=== PATIENT | female | born 1970 | race Caucasian/White ===

== ENCOUNTER 2024-03-07 10:00 | Emergency (ER) | payer OTHER, SELFPAY ==
[2024-03-07 10:06] VITALS: BP 160/97
--- NOTE | 2024-03-07 10:52 | ED.GENMED ---
History of Present Illness
General
Chief Complaint: Allergic Reaction
Source: patient
Time Seen by Provider: 03/07/24 10:28
Travel History
Have you had any contact with someone who has COVID-19?: No
Do you have any symptoms of coronavirus? Fever > 100 degrees, chills, cough, shortness of breath, sore throat, loss of taste or smell, muscle aches, or headache?: No
History of Present Illness
History of Present Illness:
53-year-old female with past medical history of hypertension presenting to the emergency department for evaluation of groin/genital itching and erythema. Patient states that she attempted topical Vagisil a week ago and states she did have initial
relief with this for about 5 days but then over the last 2 days she states the itching has gotten much more intense and she has had vaginal discharge with this as well patient is not sexually active and has no concern for sexually transmitted
infection. She denies any fevers or other infectious symptoms. She notes a history of similar about 10 years ago where she was trialed on nystatin but had an allergic reaction to this and believes she got better with clotrimazole
Past History
Past History
ED Past Medical History: GERD, HTN, Psychiatric (Anxiety ) and Other (History of arthritis, and hemorrhoids); Negative Hypercholesterolemia or IDDM
ED Past Surgical History: Gynecological (D&E., and ) and Other ([place] teeth extraction); Negative Cardiac
Social History
Tobacco: Non-smoker
Alcohol: Occasional
Drug: None
Personal:
Living: with family
Employment: Employed
Family History
Family History: Hypertension; Negative Early CAD
Review of Systems
Review of Systems
All Other Systems: ROS reviewed and negative except as documented in HPI and ROS
Phy Exam
Physical Exam
Physical Exam:
GENERAL: Alert , in no apparent distress
EYE: conjunctiva clear
Head: Normocephalic atraumatic
NECK: Supple,
ENT: mmm.
LUNGS: no acute respiratory distress
Genitourinary: Exam chaperoned by ED RONI Truong: Moderate amount of external genital erythema that extends into the inguinal region, well-demarcated, nonblanching, pruritic. There is a moderate amount of white clumpy discharge within the vagina. No
cervical motion or adnexal tenderness
NEUROLOGICAL: Alert and oriented
SKIN: Warm and dry, skin intact.
MUSCULOSKELETAL: well perfused.
PSYCH: Normal and appropriate interaction.
Scores
Heart Failure Risk
Heart Failure Risk Score: Not Applicable
Heart Score for Chest Pain Patients
STEMI patient?: Not applicable
Withdrawal Assessment of Alcohol
Withdrawal Assessment Completed?: Not applicable
Course
Orders/Labs/Results
Orders:
Orders
03/07/24 10:52
Basic Metabolic Panel Urgent
Complete Blood Count/With Diff Urgent
Urinalysis Reflex To Culture Urgent
Date Specimen was Collected: 03/07/24
Time Specimen was Collected: 10:50
Urine Microscopic Reflex Cult Urgent
Urine Culture Urgent
ELISABETH Source: U
Specimen Description:
Date Specimen was Collected: 03/07/24
Time Specimen was Collected: 10:50
Abnormal Lab Results
03/07/24
10:52
RBC 4.16 L 10^6/uL
(4.20-5.40)
Hct 35.8 L %
(37.0-47.0)
Absolute Lymphs (auto) 1.1 L 10^3/uL
(1.2-3.4)
Lymphocytes % 15.0 L %
(20.5-51.1)
Chloride 109 H mmol/L
(98-107)
Glucose 109 H mg/dl
(70-99)
Urine Ketones Trace A
(Negative)
Ur Occult Blood Reflex 4+ A
(Negative)
Leukocyte Esterase Rfl 2+ A
(Negative)
Urine RBC 26-30 A /HPF
(0-2)
Urine WBC (Reflex) 16-20 A /HPF
(0-5)
Urine Bacteria (Reflex) Moderate A
(Negative)
03/07/24 10:52
03/07/24 10:52
Vital Signs
Initial and Last Documented VS:
Initial Vital Signs
Temp Pulse Resp BP Pulse Ox
98.1 F 67 20 160/97 97
03/07/24 10:06 03/07/24 10:06 03/07/24 10:06 03/07/24 10:06 03/07/24 10:06
Last Documented Vital Signs
Temp Pulse Resp BP Pulse Ox
98.1 F 67 20 160/97 99
03/07/24 10:06 03/07/24 10:06 03/07/24 10:06 03/07/24 10:06 03/07/24 10:20
MDM/Problems Addressed
Differential Diagnosis Includes:
Candidal vulvovaginitis, tinea cruris, medication interaction, no concern for STI
MDM/Problems Addressed:
53-year-old female presenting to the emergency department for evaluation of vaginal and genital itching that has gotten worse despite topical vagisil medication initially used 1 week ago. Patient did notice initial relief but states symptoms have
been much worse over the last 2 days. Overall I am most suspicious for candidal vulvovaginitis. Will treat with Diflucan as well as topical clotrimazole ointment. It is certainly possible this could be an allergic reaction however given the
surrounding area is also erythematous I am much more convinced this to be a candidal infection. Patient currently does not have an MOVIE EXTRA so we will provide her with information for 1 so she can adequately follow-up. Anticipate discharge home.
*Pulse Oximetry
Patient hypoxic: no
*Critical Care Note
Total Time (30-74mins, 75-104mins- exclusive of procedures): Not Applicable
Patient Management
Escalation/DeEscalation of care consider admission/obs:
Patient's labs and urine are overall. Her urine did have 2+ leukocytes and 16-20 WBCs however there are increased squamous cells and bacteria likely signifying contamination. A culture will be done and if positive will recontact the patient and
start an antibiotic but I do suspect this is more likely a contaminant. Prescription for clotrimazole and Diflucan sent to pharmacy. Patient is aware of return precautions.
ED Attending Note
-
Portions of this chart may have been created with voice recognition software.� Occasional wrong word or��sound alike� substitutions may have occurred due to the inherent limitations of voice recognition software.
Discharge Plan
Departure
Patient Disposition: Home (Routine Discharge)
Date of Disposition: 03/07/24
Time of Disposition: 11:18
Patient with high blood pressure during this ER visit?: Yes
Discharge Problem:
Candidal vulvovaginitis
Instructions: Vulvovaginal yeast infection
Prescriptions:
New
fluconazole 150 mg tablet
150 mg PO ONCE Qty: 1 0RF
clotrimazole 1 % ointment
1 applic topical BID 14 Days Qty: 56.7 0RF
No Action
Aviane
1 tab PO DAILY
fluoxetine 40 MG capsule
40 mg PO Q48H
omeprazole [Prilosec] 40 MG capsule,delayed release(DR/EC)
40 mg PO DAILY Qty: 30 0RF
prednisone 20 MG tablet
40 mg PO DAILY Qty: 8 0RF
clotrimazole-betamethasone 45 GM cream
45 gm TP BID Qty: 1 0RF
Rx Instructions:
Please apply to affected ared twice daily x 10 days.
sulfamethoxazole-trimethoprim 1 TABLET tablet
1 tab PO BID Qty: 10 0RF
clotrimazole-betamethasone 45 GM cream
1 g TP BID Qty: 1 0RF
ondansetron 4 MG tablet,disintegrating
4 mg PO TIDPRN PRN (Reason: nausea/vomiting) Qty: 10 0RF
olmesartan [Benicar] 40 MG tablet
40 mg PO HS Qty: 30 0RF
famotidine [Pepcid] 20 mg tablet
20 mg PO HS Qty: 30 0RF
ondansetron 4 mg tablet,disintegrating
4 mg PO TIDPRN PRN (Reason: nausea/vomiting) Qty: 10 0RF
Referrals:
Karina Abbasi DO [Family Provider] -
Sherin Boyer MD [Active] - (OBGYN)
Interventions
Interventions:
*Risk Screen - Suicide Last Done: 03/07/24 10:06
*General Assessment Last Done: 03/07/24 10:06
*Neglect/Abuse Screening Last Done: 03/07/24 10:06
ED- Fall Risk Assessment Last Done: 03/07/24 10:20
*Nursing Disposition Last Done: 03/07/24 11:23
ED- Cardiac Assessment Last Done: 03/07/24 10:20
ED- Pulmonary Assessment Last Done: 03/07/24 10:20
ED-Skin Assessment Last Done: 03/07/24 10:20
Discharge Date and Time
Discharge Date/Time: 03/07/24 11:23
Print Language: CHINESE
[2024-03-07 11:01] LABS: % Basophils 0.8 % (0-2); % Eosinophils 4.5 % (0-6); % Immature Granulocytes 0.4 % (0-0.5); % Neutrophils 72.3 % (42.2-75.2); Absolute Basophils 0.1 10^3/uL (0-0.2); Absolute Eosinophils 0.3 10^3/uL (0-0.7); Absolute Lymphocytes 1.1 10^3/uL (1.2-3.4); Absolute Monocytes 0.5 10^3/uL (0.1-0.6); Absolute Neutrophils 5.2 10^3/uL (1.4-6.5); Hematocrit 35.8 % (37.0-47.0); Hemoglobin 12.8 g/dL (12.0-16.0); Mean Corp Hgb Conc. 35.8 g/dL (33.0-37.0); Mean Corpuscular Hgb 30.8 pg (27.0-31.0); Mean Corpuscular Volume 86.1 fL (81.0-99.0); Nucleated Red Blood Cells % 0 %; Platelet Count 298 10^3/uL (130-400); Red Blood Cell Count 4.16 10^6/uL (4.20-5.40); Red Cell Dist. Width 12.6 % (11.5-14.5); White Blood Cell Count 7.2 10^3/uL (4.8-10.8)
[2024-03-07 11:15] LABS: Blood Urea Nitrogen 13 mg/dl (7-17); Calcium 9.4 mg/dl (8.4-10.2); Carbon Dioxide 23 mmol/L (22-30); Chloride 109 mmol/L (98-107); Glucose 109 mg/dl (70-99); Potassium 3.7 mmol/L (3.5-5.1); Sodium 142 mmol/L (135-145); eGFR > 60.00
[2024-03-07 11:20] LABS: Urine Albumin Trace (Neg - Trace); Urine Bilirubin Negative (Negative); Urine Character Slightly Cloudy (Clear); Urine Glucose Negative (Negative); Urine Ketone Trace (Negative); Urine Leukocyte 2+ (Negative); Urine Nitrite Negative (Negative); Urine Occult Blood 4+ (Negative); Urine Specific Gravity 1.025 (<1.030); Urine Urobilinogen Negative (Neg - 1+)
[2024-03-07 11:21] LABS: Urine Color Yellow
[2024-03-07 11:34] LABS: Urine Squamous Cell >30 /LPF (Few)
[2024-03-07 11:35] LABS: Urine Bacteria Moderate (Negative); Urine Red Blood Cell 26-30 /HPF (0-2); Urine White Cell 16-20 /HPF (0-5)
== END 2024-03-07 11:23 | disposition home or self-care (01) ==
LOC: EMR 10:00
PROVIDERS: Physician Assistant Medical; EMERGENCY PHYSICIAN Emergency Medicine; FAMILY PHYSICIAN Family Medicine
DX: B37.31 Acute candidiasis of vulva and vagina (principal); I10 Essential (primary) hypertension; F41.9 Anxiety disorder, unspecified; K21.9 Gastro-esophageal reflux disease without esophagitis; M19.90 Unspecified osteoarthritis, unspecified site; Z88.6 Allergy status to analgesic agent; Z88.8 Allergy status to other drugs, medicaments and biological substances
CPT/HCPCS: 99283; 80048; 81003; 81015; 85025; 87086

== ENCOUNTER 2024-03-14 12:29 | Emergency (ER) | payer OTHER, SELFPAY ==
[2024-03-14 12:38] VITALS: BP 180/113
--- NOTE | 2024-03-14 14:10 | ED.GENMED ---
History of Present Illness
General
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
Source: patient
Exam Limitations: none
Time Seen by Provider: 03/14/24 12:58
Nursing documentation reviewed up to this point in time: agreed with
Travel History
Have you had any contact with someone who has COVID-19?: No
Do you have any symptoms of coronavirus? Fever > 100 degrees, chills, cough, shortness of breath, sore throat, loss of taste or smell, muscle aches, or headache?: No
History of Present Illness
History of Present Illness:
53-year-old female with past history of HTN presents with worsening of her yeast infection that she was evaluated here for on 03/07. She was given Rx for 150 mg of fluconazole once and clotrimazole 1% ointment to apply twice daily for 14 days. Pt
states rash is spreading, now starting under her arms, extremely itchy, scratching has caused her to become raw lower abdomen by C section scar. Denies fever/chills,
Past History
Past History
ED Past Medical History: GERD, HTN, Psychiatric (Anxiety ) and Other (History of arthritis, and hemorrhoids); Negative Hypercholesterolemia or IDDM
ED Past Surgical History: Gynecological (D&E., and ) and Other ([place] teeth extraction); Negative Cardiac
Social History
Tobacco: Non-smoker
Alcohol: Occasional
Drug: None
Personal:
Living: with family
Employment: Employed
Family History
Family History: Hypertension; Negative Early CAD
Review of Systems
Review of Systems
Allergies reviewed?: Yes
All Other Systems: ROS reviewed and negative except as documented in HPI and ROS
Constitutional: Denies fever or chills
ABD/GI: Denies abdominal pain or nausea
: Denies dysuria, frequency, flank pain, difficulty voiding, urgency or dark urine
Musculoskeletal: Reports no symptoms
Skin: Reports itching and rash
Neurological: Reports no symptoms
Phy Exam
Physical Exam
Physical Exam:
GENERAL: No acute distress. A&Ox3.
CONSTITUTIONAL: Afebrile.
RESPIRATORY: Regular respirations, nonlabored, lungs clear.
CARDIOVASCULAR: Regular rate and rhythm, no murmurs, no rubs.
GI: Soft, obese, nontender, normal BS
MUSCULOSKELETAL: Moves with ease. Well perfused.
SKIN: Warm, dry,. Candidal rash in fold of the pannus down into vaginal area and starting to spread to anal area. It spreads to and including the scar from her . The area is raw from scratching but no significant bleeding. Rash is in
both groin and the tops of both inner thighs. There is a much less intense rash forming under both axilla, right greater than left, not bright red likely candidal rash rather faint macular rash with normal colored underlying skin. All rash areas
are pruritic.
PSYCH: Normal mood and affect. Well kept, interactive and appropriate
NEUROLOGIC: Awake, alert and oriented. No focal neurological deficits
Course
Orders/Labs/Results
Orders:
Orders
03/14/24 14:18
Doxycycline [Vibramycin] 100 mg PO NOW STA
03/14/24 14:28
Fluconazole [Diflucan] 200 mg PO NOW STA
Vital Signs
Initial and Last Documented VS:
Initial Vital Signs
Temp Pulse Resp BP Pulse Ox
97.7 F 78 18 180/113 98
03/14/24 12:38 03/14/24 12:38 03/14/24 12:38 03/14/24 12:38 03/14/24 12:38
Last Documented Vital Signs
Temp Pulse Resp BP Pulse Ox
97.7 F 78 18 181/113 98
03/14/24 12:38 03/14/24 12:38 03/14/24 12:38 03/14/24 15:39 03/14/24 12:38
MDM/Problems Addressed
Differential Diagnosis Includes:
Candidal rash, cellulitis
MDM/Problems Addressed:
53-year-old female with past history of HTN presents with worsening of her yeast infection that she was evaluated here for on 03/07. She was given Rx for 150 mg of fluconazole once and clotrimazole 1% ointment to apply twice daily for 14 days. Pt
states rash is spreading, now starting under her arms, extremely itchy, scratching has caused her to become raw lower abdomen by C section scar. Denies fever/chills,
Patient states about 10 years ago she had a similar rash and developed a staph infection along with.
Rash is very red in some areas, difficult to tell if cellulitis vs candidal rash
She does meet criteria for complicated infection of extensive vulvovaginal involvement and edema so Diflucan 150 mg every 72 hours x 3 doses then once a week for up to 6 months (she will see here PCP in 2 weeks for further instruction)
She could not get PARAPROFESSIONAL EDUCATION ASSISTANT appointment until May
Gave first dose here today
Rx sent to pharmacy for Diflucan and Doxycycline
BP has remained high, she did take her BP med Benicar today. Will add low dose HCTZ and she will f/u with her PCP next week.
*Critical Care Note
Total Time (30-74mins, 75-104mins- exclusive of procedures): Not Applicable
ED Attending Note
-
Portions of this chart may have been created with voice recognition software.� Occasional wrong word or��sound alike� substitutions may have occurred due to the inherent limitations of voice recognition software.
Discharge Plan
Departure
Patient Disposition: Home (Routine Discharge)
Date of Disposition: 03/14/24
Time of Disposition: 15:00
Patient with high blood pressure during this ER visit?: Yes
Condition: Fair
Discharge Problem:
Candidiasis of breast, Candidiasis of female genitalia
Instructions: Yeast Infection (DC), BLOOD PRESSURE
Prescriptions:
New
fluconazole 150 mg tablet
See Rx Instructions .ROUTE .COMPLEX Qty: 14 0RF
Rx Instructions:
150 mg orally on 03/17 and 03/21 then once weekly
doxycycline monohydrate 100 mg capsule
100 mg PO BID Qty: 14 0RF
hydrochlorothiazide 12.5 mg tablet
12.5 mg PO BID Qty: 60 0RF
No Action
Aviane
1 tab PO DAILY
fluoxetine 40 MG capsule
40 mg PO Q48H
omeprazole [Prilosec] 40 MG capsule,delayed release(DR/EC)
40 mg PO DAILY Qty: 30 0RF
prednisone 20 MG tablet
40 mg PO DAILY Qty: 8 0RF
clotrimazole-betamethasone 45 GM cream
45 gm TP BID Qty: 1 0RF
Rx Instructions:
Please apply to affected ared twice daily x 10 days.
sulfamethoxazole-trimethoprim 1 TABLET tablet
1 tab PO BID Qty: 10 0RF
clotrimazole-betamethasone 45 GM cream
1 g TP BID Qty: 1 0RF
ondansetron 4 MG tablet,disintegrating
4 mg PO TIDPRN PRN (Reason: nausea/vomiting) Qty: 10 0RF
olmesartan [Benicar] 40 MG tablet
40 mg PO HS Qty: 30 0RF
famotidine [Pepcid] 20 mg tablet
20 mg PO HS Qty: 30 0RF
ondansetron 4 mg tablet,disintegrating
4 mg PO TIDPRN PRN (Reason: nausea/vomiting) Qty: 10 0RF
fluconazole 150 mg tablet
150 mg PO ONCE Qty: 1 0RF
clotrimazole 1 % ointment
1 applic topical BID 14 Days Qty: 56.7 0RF
Referrals:
Karina Abbasi DO [Family Provider] - Follow up in 1 week
Earlene Acevedo MD [Consulting Staff] - Next open appointment
Sherin Boyer MD [Active] - Keep scheduled appt
Activity Restrictions/Additional Instructions:
As we discussed, take Diflucan 150 mg on 03/17, 03/21 and then once a week until further instructed
call and make appointment with your primary provider in 7-10 days for recheck and further instruction on using the Diflucan
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 If you are not improving, you may need a biopsy of the rash.
Keep your appointment in May with PARAPROFESSIONAL EDUCATION ASSISTANT doctor.
I sent a prescription to your pharmacy for Hydrochlorothiazide, a diuretic to take twice daily for your blood pressure. See your primary doctor in 2-3 weeks for blood pressure recheck and further instruction
Interventions
Interventions:
*Risk Screen - Suicide Last Done: 03/14/24 12:38
*General Assessment Last Done: 03/14/24 12:38
*Neglect/Abuse Screening Last Done: 03/14/24 12:38
ED- Fall Risk Assessment Last Done: 03/14/24 15:08
*ED COVID-19 Vaccine History Last Done: 03/14/24 15:08
*Nursing Disposition Last Done: 03/14/24 15:59
ED-Female Genitourinary Assessment Last Done: 03/14/24 14:36
Discharge Date and Time
Discharge Date/Time: 03/14/24 15:50
Print Language: ANGOLAN
[2024-03-14] MEDS: DIFLUCAN 200 MG PO (14:34)
[2024-03-14] MEDS: VIBRAMYCIN 100 MG PO (14:34)
[2024-03-14 15:39] VITALS: BP 172/115; BP 181/113
== END 2024-03-14 15:50 | disposition home or self-care (01) ==
LOC: EMR 12:29
PROVIDERS: EMERGENCY PHYSICIAN Student in an Organized Health Care Education/Training Program; FAMILY PHYSICIAN Family Medicine
DX: B37.31 Acute candidiasis of vulva and vagina (principal); B37.89 Other sites of candidiasis; Z82.49 Family history of ischemic heart disease and other diseases of the circulatory system; Z87.19 Personal history of other diseases of the digestive system; K21.9 Gastro-esophageal reflux disease without esophagitis; I10 Essential (primary) hypertension; F41.9 Anxiety disorder, unspecified; M19.90 Unspecified osteoarthritis, unspecified site
CPT/HCPCS: 99282

== ENCOUNTER → 2024-11-20 11:27 | Outpatient (REF) | payer OTHER, SELFPAY | LOC: RAD 11:27 | PROVIDERS: ATTENDING PHYSICIAN Nurse Practitioner Family | DX: R06.02 Shortness of breath (principal) | CPT/HCPCS: 71046; 93005 ==

== ENCOUNTER → 2025-08-10 14:12 | Outpatient (REF) | payer OTHER, SELFPAY | LOC: RAD 14:12 | PROVIDERS: ATTENDING PHYSICIAN Nurse Practitioner Family; FAMILY PHYSICIAN Family Medicine | DX: N95.0 Postmenopausal bleeding (principal) | CPT/HCPCS: 76830; 76856 ==